=== PATIENT | male | born 1965 | race Caucasian/White ===

== ENCOUNTER 2017-08-07 03:14 | Emergency (ER) | payer OTHER ==
[2017-08-07 03:22] VITALS: TEMP 97.4
--- NOTE | 2017-08-07 03:49 | ED ---
General Adult HPI - General Chief complaint: Extremity Injury, Lower Stated complaint: Leg Pain Time Seen by Provider: 08/07/17 03:25 Source: patient, RN notes reviewed Mode of arrival: ambulatory Limitations: no limitations - History of Present Illness Initial comments: 51-year-old male presents for evaluation of right lower extremity pain. Patient states he's had 6 days of anterior right lower extremity pain. Denies trauma. Pain is worse with ambulation, sharp in nature. States it is a dull burning sensation at rest. Denies any calf tenderness, pain is located in the anterior damon distal right lower extremity. Denies fever or chills. Denies thigh pain or knee pain. Denies ankle pain. Denies any overuse. Denies fever or chills. Patient's family members urged him to come to the emergency department for concerns of lower extremity DVT. Patient denies chest pain or shortness of breath. - Related Data Home Medications Medication Instructions Recorded Confirmed Fluticasone Nasal Tyler [Flonase 1 spray INTRANASAL DAILY 08/07/17 08/07/17 Nasal Tyler] RX: Lisinopril [Zestril] 20 mg PO DAILY 08/07/17 08/07/17 buPROPion [Wellbutrin] 100 mg PO TID 08/07/17 08/07/17 Previous Rx's Medication Instructions Recorded Ibuprofen [Motrin] 600 mg PO Q8HR PRN #24 tab 08/07/17 Allergies Allergy/AdvReac Type Severity Reaction Status Date / Time No Known Allergies Allergy Verified 08/07/17 03:22 Review of Systems ROS Statement: Those systems with pertinent positive or pertinent negative responses have been documented in the HPI. ROS Other: All systems not noted in ROS Statement are negative. Past Medical History Past Medical History: Hypertension History of Any Multi-Drug Resistant Organisms: None Reported Past Surgical History: No Surgical Hx Reported Past Psychological History: Anxiety Smoking Status: Current every day smoker Past Alcohol Use History: Occasional Past Drug Use History: None Reported General Exam Limitations: no limitations General appearance: alert, in no apparent distress Head exam: Present: atraumatic, normocephalic Eye exam: Present: normal appearance, PERRL ENT exam: Present: normal exam Neck exam: Present: normal inspection. Absent: tenderness Respiratory exam: Present: normal lung sounds bilaterally. Absent: respiratory distress Cardiovascular Exam: Present: regular rate, normal rhythm Extremities exam: Present: normal inspection, normal capillary refill, other ( No erythema or signs cellulitis, distal pulses including right popliteal, DP and PT pulses are 2+.). Absent: pedal edema, joint swelling, calf tenderness Neurological exam: Present: alert, oriented X3, CN II-XII intact. Absent: motor sensory deficit Psychiatric exam: Present: normal affect, normal mood Skin exam: Present: warm, dry, intact. Absent: cyanosis, diaphoretic Course Vital Signs 08/07/17 03:18 Temperature 97.4 F L Pulse Rate 68 Respiratory 16 Rate Blood Pressure 165/85 O2 Sat by Pulse 100 Oximetry Medical Decision Making - Medical Decision Making 49-year-old male presenting with 1 week history of right lower extremity pain. Pain is anterior distal damon, no signs of infection, distal pulses intact, no tenderness, no erythema, lower extremities prominence are soft. Patient was concern for DVT, ultrasound is obtained, this is negative for DVT, x-ray is negative for acute bony abnormality or signs of infection including no subcutaneous gas. Patient will ice extremity, take Motrin, follow-up with primary care physician return the emergency Department with worsening symptoms. Disposition Clinical Impression: Lower extremity pain Disposition: HOME SELF-CARE Condition: Good Instructions: Tendinitis (ED) Prescriptions: Ibuprofen [Motrin] 600 mg PO Q8HR PRN #24 tab PRN Reason: Pain Referrals: Jerzy Osborne DO [Primary Care Provider] - 1-2 days Time of Disposition: 05:13
--- NOTE | 2017-08-07 04:21 | XR ---
EXAM: XR Right Tib/Fib CLINICAL HISTORY: Reason: Pain TECHNIQUE: X-ray right tib/fib. COMPARISON: No relevant prior studies available. FINDINGS/IMPRESSION: No acute fracture. No destructive changes. No radiodense foreign bodies.
--- NOTE | 2017-08-07 05:06 | US ---
INDICATION: Pain TECHNIQUE: Real-time imaging of the right common femoral, superficial femoral and popliteal veins is performed utilizing intermittent compression. The study is supplemented with color flow imaging and duplex Doppler during spontaneous flow, Valsalva and calf augmentation. COMPARISON: None FINDINGS: Normal compressibility is demonstrated from the common femoral vein to the popliteal vein. There is normal response to Valsalva and augmentation. Normal spontaneous phasic flow is noted. IMPRESSION: No evidence of deep venous thrombosis in the right lower extremity.
[2017-08-07 05:20] VITALS: BP 146/83; PULSE 76; RESP 18
== END 2017-08-07 05:30 | disposition home or self-care (01) ==
LOC: EC 03:14
DX: M79.661 Pain in right lower leg (principal); R20.8 Other disturbances of skin sensation; I10 Essential (primary) hypertension; F17.200 Nicotine dependence, unspecified, uncomplicated; Z79.51 Long term (current) use of inhaled steroids; Z79.899 Other long term (current) drug therapy
CPT/HCPCS: 99284

== ENCOUNTER 2023-11-21 19:10 | Outpatient (CLI) | payer OTHER ==
--- NOTE | 2023-11-23 16:39 | P.PCN ---
Date of Procedure: 11/21/23 Description of Procedure: Polysomnography/CPAP titration report Date of service is 11/21/2023 Pertinent history This patient saw me in consult regarding obstructive sleep apnea. 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 The patient was diagnosed in 2019. The patient had an initial brief trial of CPAP therapy which she failed and he is been off treatment. He has become more symptomatic and the patient came to the office requesting a reevaluation. He is doing short deliveries.. I sug gested an in lab CPAP titration for this patient to have the pressures adjusted and we are going to restart CPAP therapy. The patient seems to be committed to undergo treatment for the time being based on his symptomatic nature. He has hypertension and chronic neck pain and chronic anxiety. Pertinent physical findings Height is 5 feet and 9 inches, weight is 226 pounds with a body mass index of 33.4 Technical description The patient was studied using a standard complex polysomnography protocol that included recording of the 2 EKG, Central, occipital and frontal EEG, right and left outer canthus EOG, submental EMG, right and left anterior tibialis EMG, respiratory airflow by thermocouple and or pressure/flow transducer, respiratory efforts by abdominal and thoracic PVDF belts, oxygen saturation by cable oximetry. Position by observation synchronized the PSG. Stepwise CPAP titration was done to limit obstructive respiratory events: Shilpa Patel. Sleep architecture The total recording duration was 93 minutes. The total sleep time was 0 minutes. I carefully reviewed the sleep study. The patient was started on CPAP pressure of 8 cm of water and the plan was to gradually increase the pressure to eliminate obstructive respiratory events. He was given an AirFit P10 nasal pillow. You manage within the study, the patient decided that he does not want to proceed with the treatment. He requested the study to be stopped. The patient stated that he could not sleep with all these wires and he left AMA. This is a failed CPAP titration. I am going to contact the patient and discuss options. The patient left AMA and he was unable to sleep due to the wiring in the CPAP that patient set up that he was offered during the study.
== END 2023-11-21 23:30 | disposition left against medical advice (07) ==
LOC: 3 N SLEEP 19:10
PROVIDERS: ATTEND Internal Medicine Critical Care Medicine
DX: G47.33 Obstructive sleep apnea (adult) (pediatric) (principal); F41.9 Anxiety disorder, unspecified; G89.29 Other chronic pain; I10 Essential (primary) hypertension; Z79.899 Other long term (current) drug therapy; F17.200 Nicotine dependence, unspecified, uncomplicated